=== PATIENT | male | born 1945 | race Caucasian/White ===

== ENCOUNTER → 2018-09-30 | Outpatient (CLI) | payer MEDICARE, OTHER ==
[~2018-09-30] MED LIST: ASPI-630 PO; AZEL6DRO2 OP; BUDE10.2 IH; DEXL60CA2 PO; ESZO3TAB28 PO; FENO134C PO; FOLI1TAB16 PO; IPRA4AER IH; METO50TA29 PO; MIDO2.5T PO; OMEG1CAP2 PO; QUIN40TA16 PO; TAMS0.4C2 PO; TRAM50TA PO; TRAZ150T49 PO; [UNRECOGNIZED DRUG - CODE] PO
== END | disposition home or self-care (01) ==
LOC: SURG 09:18
PROVIDERS: ATTEND Anesthesiology
DX: G89.4 Chronic pain syndrome (principal); M17.0 Bilateral primary osteoarthritis of knee; M54.16 Radiculopathy, lumbar region; M47.812 Spondylosis without myelopathy or radiculopathy, cervical region; M25.511 Pain in right shoulder; M25.512 Pain in left shoulder
CPT/HCPCS: 99204